=== PATIENT | male | born 1980 | race Caucasian/White ===

== ENCOUNTER 2018-02-03 07:37 | Emergency (ER) | payer BC ==
[2018-02-03 07:43] VITALS: TEMP 98.7
[2018-02-03] MEDS ORDERED: Lidocaine 2% Inj (20ml) INFIL ONE (09:11)
[2018-02-03] MEDS ORDERED: Lidocaine PF 2% (5 ml) Inj (For Cardiac Arrhy) ONE ×2 (09:16→11:26)
--- NOTE | 2018-02-03 10:35 | ED PDOC ---
HPI: Skin/Bite Injury Time Seen by Provider: 02/03/18 08:38 Chief Complaint (Nursing): Abnormal Skin Integrity Chief Complaint (Provider): Abnormal Skin Integrity History Per: Patient History/Exam Limitations: no limitations Onset/Duration Of Symptoms: Mins (prior to arrival) Current Symptoms Are (Timing): Still Present Location Of Injury: Right: Hand Additional Complaint(s): 37 year old male presents to the ED with a right index finger laceration that occurred minutes prior to arrival. Patient reports he was cutting bread with a serrated knife when the injury happened. He is able to move finger actively. Denies active bleeding. PMD: none provided Past Medical History Reviewed: Historical Data, Nursing Documentation, Vital Signs Vital Signs: Last Vital Signs Temp 98.7 F 02/03/18 07:42 Pulse 100 H 02/03/18 07:42 Resp 18 02/03/18 07:42 BP 120/81 02/03/18 07:42 Pulse Ox 98 02/03/18 07:42 - Medical History PMH: Hypercholesterolemia, Hyperlipidemia - Surgical History Surgical History: No Surg Hx - Family History Family History: States: Unknown Family Hx - Immunization History Hx Tetanus Toxoid Vaccination: Yes (recently immigrated to [place] (UTD)) - Home Medications Home Medications: Ambulatory Orders Medication Instructions Recorded Cyclobenzaprine HCl [Flexeril] 10 mg PO TID PRN #15 tab 10/02/14 RX: Atorvastatin [Lipitor] 10 mg PO DAILY 10/02/14 - Allergies Allergies/Adverse Reactions: Allergies Allergy/AdvReac Type Severity Reaction Status Date / Time No Known Allergies Allergy Verified 02/03/18 08:04 Review of Systems ROS Statement: Except As Marked, All Systems Reviewed And Found Negative Musculoskeletal: Positive for: Hand Pain (right index finger laceration) Physical Exam - Reviewed Nursing Documentation Reviewed: Yes Vital Signs Reviewed: Yes - Physical Exam Appears: Positive for: Non-toxic, No Acute Distress Head Exam: Positive for: ATRAUMATIC, NORMAL INSPECTION, NORMOCEPHALIC Skin: Positive for: Normal Color, Warm, Dry Eye Exam: Positive for: Normal appearance, EOMI Extremity: Positive for: Normal ROM (at right index finger), Other (laceration to right proximal phalanx of index finger with no active bleeding ) Neurologic/Psych: Positive for: Alert, Oriented - ECG O2 Sat by Pulse Oximetry: 98 (RA) Pulse Ox Interpretation: Normal Medical Decision Making Medical Decision Makin:11 Impression: right finger laceration Initial Plan: --Lidocaine 2% 5 ml --Sutures will be placed Sutures placed by YAMILET Horn. Follow up instructions given. Scribe Attestation: Documented by Shaina Sifuentes, acting as a scribe for Breann Jj MD Provider Scribe Attestation: All medical record entries made by the Scribe were at my direction and personally dictated by me. I have reviewed the chart and agree that the record accurately reflects my personal performance of the history, physical exam, medical decision making, and the department course for this patient. I have also personally directed, reviewed, and agree with the discharge instructions and disposition. Disposition - Clinical Impression Clinical Impression: Laceration - Patient ED Disposition Is Patient to be Admitted: No Counseled Patient/Family Regarding: Studies Performed, Diagnosis, Need For Followup - Disposition Disposition: Routine/Home Disposition Time: 12:00 Condition: GOOD Instructions: Laceration Repair
[2018-02-03] MEDS ORDERED: Lidocaine 2% MPF (5 ml) Inj INJ STA (11:25)
[2018-02-03 12:04] VITALS: BP 126/78; PULSE 74; RESP 16
[2018-02-07 15:24] VITALS: O2SAT 98
== END 2018-02-03 12:00 | disposition home or self-care (01) ==
LOC: H.ER 07:37
DX: S61.210A Laceration without foreign body of right index finger without damage to nail, initial encounter (principal); W26.0XXA Contact with knife, initial encounter; Y92.89 Other specified places as the place of occurrence of the external cause